=== PATIENT | female | born 1995 | race Hispanic/Latino ===

== ENCOUNTER 2022-07-23 08:46 | Inpatient (IN) | payer MEDICAID, OTHER ==
[2022-07-23] MEDS ORDERED: CARBOPROST TROMETHAMINE 250 MCG/1 ML INJ IM PRN (10:48)
[2022-07-23] MEDS ORDERED: fentaNYL 100 MCG/2 ML INJ IV PRN (10:48)
[2022-07-23] MEDS ORDERED: MINERAL OIL 30 ML ORAL LIQD PO PRN (10:48)
[2022-07-23] MEDS ORDERED: TERBUTALINE 1 MG/1 ML INJ SUB-Q PRN (10:48)
[2022-07-23] MEDS ORDERED: BUTORPHANOL 2 MG/1 ML INJ IV PRN (10:48)
[2022-07-23] MEDS ORDERED: LOPERAMIDE 2 MG CAP PO PRN (10:48)
[2022-07-23] MEDS ORDERED: miSOPROStol 200 MCG TAB PR PRN (10:48)
[2022-07-23] MEDS ORDERED: METHYLERGONOVINE MALEATE 0.2 MG/ML VIAL IM PRN (10:48)
[2022-07-23] MEDS ORDERED: OXYTOCIN 10 UNIT/1 ML INJ IM PRN (10:48)
[2022-07-23] MEDS ORDERED: PROMETHAZINE 25 MG TAB PO PRN ×2 (10:48→13:00)
[2022-07-23] MEDS ORDERED: ePHEDrine SULFATE 50 MG/1 ML INJ IV PRN (10:48)
[2022-07-23] MEDS ORDERED: ACETAMINOPHEN 325 MG TAB PO PRN (10:48)
[2022-07-23] MEDS ORDERED: LIDOCAINE (2%) 20 MG/1 ML VIAL 20 ML MDV INFILTRATI ONE (10:48)
[2022-07-23] MEDS ORDERED: OXYTOCIN DRIP 30 UNITS/500 ML BAG IV SCH ×2 (11:00)
[2022-07-23] MEDS ORDERED: LACTATED RINGERS 1,000 ML IV SCH (11:00)
--- NOTE | 2022-07-23 11:07 | Procedure Note ---
OB Delivery Note - Delivery Date of Delivery: 07/23/22 Surgeon: ANNE JAMES Estimated blood loss: 200cc - Vaginal Delivery presentation: vertex Delivery position: OA Intrapartum events: none Delivery induction: none Delivery monitor: external FHT Route of delivery: Delivery placenta: spontaneous, expressed Delivery cord: true knot, 3 umbilical vessels Episiotomy: none Delivery laceration: none Anesthesia: none - A at 1 minute: 8 at 5 minutes: 9 Infant Gender: Male ([id number] [7lbs 10oz])
[2022-07-23 12:19] LABS: Hematocrit 33.4 % (30.3-42.9); Hemoglobin 10.8 gm/dl (10.1-14.3); Mean Corpuscular HGB Conc 32 % (30-34); Mean Corpuscular Volume 90 fl (79-97); Platelet Count 282 K/mm3 (140-440); Red Blood Count 3.72 M/mm3 (3.65-5.03); Red Cell Distribution Width 15.4 % (13.2-15.2)
[2022-07-23] MEDS ORDERED: diphenhydrAMINE 25 MG CAP PO PRN (13:00)
[2022-07-23] MEDS ORDERED: PROMETHAZINE 25 MG RECT SUPP PR PRN (13:00)
[2022-07-23] MEDS ORDERED: ONDANSETRON 4 MG/2 ML INJ IV PRN (13:00)
[2022-07-23] MEDS ORDERED: WITCH HAZEL/ GLYCERIN PAD TP PRN (13:00)
[2022-07-23] MEDS ORDERED: HYDROcodone/ACETAMINOPHEN 5-325 MG TAB PO PRN (13:00)
[2022-07-23] MEDS ORDERED: LANOLIN/ZINC/DIMETHICONE (LANSINOH) 7 GM TP PRN (13:00)
[2022-07-23] MEDS: IBUPROFEN 600 MG TAB PO SCH ×2 (13:35→20:00)
[2022-07-23] MEDS ORDERED: SENNOSIDES/DOCUSATE SODIUM 8.6/50 MG TAB PO SCH (14:00)
--- NOTE | 2022-07-23 16:23 | History and Physical Report ---
History of Present Illness Date of examination: 07/23/22 Date of admission: 07/23/22 08:47 Past History - Obstetrical History : 1 Medications and Allergies Allergies Allergy/AdvReac Type Severity Reaction Status Date / Time No Known Allergies Allergy Unverified 06/27/18 06:45 Home Medications Medication Instructions Recorded Confirmed Last Taken Type Ibuprofen [Motrin 800 MG tab] 800 mg PO TID PRN #30 tablet 06/28/18 Unknown Rx Active Meds: Active Medications Acetaminophen (Acetaminophen 325 Mg Tab) 650 mg PO Q4H PRN PRN Reason: Pain, Mild (1-3) Hydrocodone Bitart/Acetaminophen (Hydrocodone/Acetaminophen 5-325 Mg Tab) 2 each PO Q6H PRN PRN Reason: Pain, Moderate (4-6) Bisacodyl (Bisacodyl 10 Mg Rect Supp) 10 mg [place] BID PRN PRN Reason: Constipation Diphenhydramine HCl (Diphenhydramine 25 Mg Cap) 25 mg PO Q6H PRN PRN Reason: Itching Docusate Sodium (Docusate Sodium 100 Mg Cap) 100 mg PO BID PENNY Ferrous Sulfate (Ferrous Sulfate 325 Mg Tab) 325 mg PO BID PENNY Ibuprofen (Ibuprofen 600 Mg Tab) 600 mg PO Q6H [facility] Last Admin: 07/23/22 13:35 Dose: 600 mg Magnesium Hydroxide (Magnesium Hydroxide (Mom) Oral Liqd Udc) 30 ml PO HS PRN PRN Reason: Constipation Multi-Ingredient Ointment (Lanolin/Zinc/Dimethicone (Lansinoh) 7 Gm) 1 applic TP PRN PRN PRN Reason: Sore Nipples Multivitamins/Iron/Calcium ( [id number] Fumarate-Folic Acid Vit Tab) 1 each PO QDAY PENNY Ondansetron HCl (Ondansetron 4 Mg/2 Ml Inj) 4 mg IV Q8H PRN PRN Reason: Nausea And Vomiting Promethazine HCl (Promethazine 25 Mg Rect Supp) 25 mg [place] Q6H PRN PRN Reason: Nausea And Vomiting Promethazine HCl (Promethazine 25 Mg Tab) 25 mg PO Q6H PRN PRN Reason: Nausea And Vomiting Sodium Chloride (Sodium Chloride 0.9% 10 Ml Flush Syringe) 10 ml IV PRN NR Stop: 08/05/22 12:59 Witch Myra/Glycerin (Witch Myra/ Glycerin Pad) 1 each TP PRN PRN PRN Reason: Hemorrhoid/cleansing/soothing - Vital Signs Vital signs: Vital Signs Pulse Pulse Ox 79 100 07/23/22 09:42 07/23/22 09:42 Temp Pulse Resp BP Pulse Ox 98.3 F 87 18 115/71 97 07/23/22 12:46 07/23/22 12:46 07/23/22 12:46 07/23/22 12:46 07/23/22 12:46 - Physical Exam Cardiovascular: Regular rate, Normal S1, Normal S2 Lungs: Positive: Clear to auscultation, Normal air movement Abdomen: Positive: normal appearance, soft Genitourinary (Female): Positive: normal external genitalia Vagina: Positive: normal moisture Uterus: Positive: normal size Deep Tendon Reflex Grade: Normal +2 - Obstetrical FHR: auscultation normal Cervical Dilatation: 8 Cervical Effacement Percentage: 90 station: -2 Uterine Contraction Pattern: Regular Uterine Tone Measurement Phase: Contraction Uterine Contraction Intensity: Moderate Results Result Diagrams: 07/23/22 Unknown Abnormal lab results 07/23/22 Range/Units Unknown RDW 15.4 H (13.2-15.2) % All other labs normal.
[2022-07-23] MEDS: FERROUS SULFATE 325 MG TAB PO SCH (21:53)
[2022-07-23] MEDS: DOCUSATE SODIUM 100 MG CAP PO SCH (21:53)
[2022-07-23] MEDS ORDERED: MAGNESIUM HYDROXIDE (MOM) ORAL LIQD UDC PO PRN (22:00)
[2022-07-24 00:03] LABS: Hematocrit 28.9 % (30.3-42.9); Hemoglobin 9.6 gm/dl (10.1-14.3)
[2022-07-24] MEDS: IBUPROFEN 600 MG TAB PO SCH ×2 (02:00→09:19)
[2022-07-24] MEDS: DOCUSATE SODIUM 100 MG CAP PO SCH (09:20)
[2022-07-24] MEDS: FERROUS SULFATE 325 MG TAB PO SCH (09:20)
[2022-07-24] MEDS ORDERED: PRENATAL VIT27-FE FUMARATE-FOLIC ACID VIT TAB PO SCH (10:00)
--- NOTE | 2022-07-24 11:59 | Progress Note ---
Assessment and Plan PPd 1 s/p . Doing well. Continue routine care. Plan for discharge on tomorrow. Subjective - Subjective Date of service: 07/24/22 Principal diagnosis: Spontaneous Vaginl delivery Patient reports: appetite normal, voiding normally, pain well controlled [place]: doing well Objective - Vital Signs Latest vital signs: Vital Signs Temp Pulse Resp BP BP Pulse Ox Pulse Ox 07/24/22 08:24 98.1 F 98 H 18 124/78 91 07/24/22 02:00 18 07/23/22 23:56 98.2 F 78 20 125/88 97 07/23/22 20:00 18 07/23/22 16:16 98.6 F 79 16 125/80 99 07/23/22 12:46 98.3 F 87 18 115/71 97 97 Intake and Output 07/23/22 07/24/22 07/24/22 22:59 06:59 14:59 Intake Total 480 Output Total 700 Balance 480 -700 Intake: Oral 480 Output: Urine 700 Void 700 Other: Total, Intake Amount 240 Total, Output Amount 700 # Voids Void 1 1 - Exam Breasts: Present: deferred Cardiovascular: Present: Regular rate, Normal S1, Normal S2 Lungs: Present: Clear to auscultation, Normal air movement Abdomen: Present: normal appearance, soft, normal bowel sounds Vulva: both: normal Uterus: Present: normal, firm Extremities: Present: normal Deep Tendon Reflex Grade: Normal +2 - Labs Labs: Abnormal lab results 07/23/22 07/23/22 Range/Units 23:51 Unknown Hgb 9.6 L (10.1-14.3) gm/dl Hct 28.9 L (30.3-42.9) % RDW 15.4 H (13.2-15.2) %
--- NOTE | 2022-07-24 12:05 | Discharge Summary ---
Providers - Providers Date of Admission: 07/23/22 08:47 Date of discharge: 07/25/22 Attending physician: GINGER LYNN Primary care physician: GINGER LYNN Hospitalization Reason for admission: active labor Delivery: Episiotomy: none Laceration: none Other procedures: none complications: none Discharge diagnosis: IUP at term delivered baby: male Condition at discharge: Good Disposition: 01 HOME / SELF CARE / HOMELESS Plan - Discharge Medications Prescriptions: Ibuprofen [Motrin 600 MG tab] 600 mg PO Q6H #30 tablet - Provider Discharge Summary Activity: routine, no sex for 6 weeks, no heavy lifting 4 weeks, no strenuous exercise Diet: routine Instructions: routine Additional instructions: [] Smoking cessation referral if applicable(refer to patient education folder for contact #) [] Refer to [facility] Booklet Call your doctor immediately for: * Fever > 100.5 * Heavy vaginal bleeding ( >1 pad per hour) * Severe persistent headache * Shortness of breath * Reddened, hot, painful area to leg or breast * Drainage or odor from incision. * Keep incision clean and dry at all times and follow doctor's instructions regarding bathing/showering - Follow up plan Follow up: GNIGER LYNN MD [Primary Care Provider] - 6 Weeks
[2022-07-24 20:21] VITALS: BP 131/72
== END 2022-07-24 23:00 | disposition home or self-care (01) | DRG 807 ==
LOC: APU 08:46 → TRG 08:46 → APU 08:47 → TRG 11:07 → OB 12:52
PROVIDERS: ADMIT Obstetrics & Gynecology; ATTEND Obstetrics & Gynecology
PROC: 10E0XZZ Delivery of Products of Conception, External Approach (ICD-10-PCS; principal; 2022-07-23)
DX: O69.2XX0 Labor and delivery complicated by other cord entanglement, with compression, not applicable or unspecified (principal); Z37.0 Single live birth; Z3A.39 39 weeks gestation of pregnancy; Z20.822 Contact with and (suspected) exposure to COVID-19
CPT/HCPCS: 36415; 85014; 85018; 85027; 86850; 86900; 86901; 96360; G0378; U0003